=== PATIENT | female | born 1980 | race Caucasian/White ===

== ENCOUNTER 2025-02-06 16:58 | Inpatient (IN) | payer OTHER, SELFPAY ==
[2025-02-06 16:58] VITALS: BP 144/85; PULSE 67; RESP 18; TEMP 36.6; O2SAT 100; BMI 28.4
--- NOTE | 2025-02-06 17:31 | US_ITS ---
PROCEDURE: GALLBLADDER 02/06/2025 REASON FOR EXAM: PAIN COMPARISON: None FINDINGS: Liver: Mild hepatomegaly, craniocaudal length 17.6 cm. Homogeneous normal echogenicity. Gallbladder: Cholelithiasis. Mild wall thickening, measuring 4 mm. Negative sonographic Galindo's sign. Common bile duct: Dilated measuring up to 6 mm. Pancreas: Visualized portions are sonographically unremarkable. Other: Right kidney, measures 12 cm. No focal lesion. No calculi or hydronephrosis. US/Gallbladder IMPRESSION: Mild hepatomegaly, without focal lesion. Cholelithiasis with mild gallbladder wall thickening and common bile duct dilat ion. No visualized obstructing calculus. However, findings may be secondary to choledocholithiasis. Recommend further e valuation with MRCP. Reading Location: [facility]
--- NOTE | 2025-02-06 17:32 | ED.VIS.GI ---
HPI HPI - GI History of Present Illness Chief Complaint: Abd Pain Narrative Narrative: 45-year-old female past medical history of hypothyroidism presents with right upper quadrant pain that she has had since , approximately 4 days ago. She relates history that she was seen at [facility], where CT was obtained, and said that her gallbladder was angry. She denies any fevers or chills, no nausea or vomiting associated with this pain. They discharged her and she reportedly had a outpatient ultrasound today which showed that her gallbladder was once again angry. She was supposed to follow-up tomorrow with his surgeon, Dr. Guardado, who reportedly told her that he reviewed the films and her bile duct is dilated and there may be a stone within it and that he is reluctant to perform surgery, but she was to come to [place] to be admitted for gastroenterology/ERCP. Patient states that she had been discharged with pain medication, but she took it today and it was not helping. Pain is worse with movement and somewhat relieved by remaining still. [facility] Medical History (Updated 02/06/25 @ 20:[address] Cristobal Mcallister MD) Hypothyroidism Home Medications ?Medication ?Instructions ?Recorded ?Last Taken ?Type levothyroxine 75 mcg tablet 75 mcg PO DAILY 02/06/25 Unknown History Allergy/AdvReac Type Severity Reaction Status Date / Time No Known Allergies Allergy Verified 02/06/25 16:59 Social History Smoking Status: Never smoker ROS ROS ED ROS Narrative Review of systems is positive for right upper quadrant abdominal pain. No fevers or chills, no nausea or vomiting. Denies other symptoms. EXAM Physical Exam Narrative Exam Narrative: Afebrile. Vital signs noted. Nontoxic-appearing. Cardiovascular examination reveals a regular rate and rhythm. Lungs are clear to auscultation bilaterally. The abdomen is soft, with tenderness in the right upper quadrant with questionable Galindo sign. Positive bowel sounds. Const Vital Signs: 02/06/25 16:58 02/06/25 18:58 Temperature 97.8 F Temperature Source Oral Pulse Rate 67 62 Respiratory Rate 18 16 Blood Pressure 144/85 H 121/66 H Blood Pressure Mean 104 84 Pulse Ox 100 98 Oxygen Delivery Method Room Air Room Air MDM MDM MDM Narrative Medical decision making narrative: Differential diagnosis includes but not limited to gallstone pancreatitis versus acute cholecystitis versus choledocholithiasis versus nonspecific abdominal pain. With concern for acute cholecystitis, as images are unable to be viewed from the outside facility, repeat ultrasound will be obtained as well as basic laboratory work to look for elevated white count, and elevation of her LFTs. Patient administered morphine and ondansetron for analgesia. I reviewed her laboratory work and she has normal white count of 4.9 with hemoglobin 10.7, hematocrit 32.7, platelet count 294. CMP is remarkable for elevated AST of 78 with ALT of 64 and alk phos of 161. Lipase normal at 24. Serum negative. I reviewed the radiology report of the ultrasound of the right upper quadrant. Common bile duct is dilated. She does have cholelithiasis with thickened gallbladder wall. Suspicion is high for choledocholithiasis. I had initially discussed the patient with Dr. Stephens as she was sent in for ERCP/MRCP. However, I did discuss the patient with Dr. Mcallister with general surgery as well. She will be started on antibiotics and admitted to his service with consultation to gastroenterology. Disposition is admit in stable condition. History & Record Review Discussion w/independent historian: Patient Lab Data Attestation: I reviewed the patient's lab results. Labs: Laboratory Results - last 24 hr 02/06/25 17:53 WBC 4.9 RBC 3.61 L Hgb 10.7 L Hct 32.7 L MCV 90.6 MCH 29.6 MCHC 32.7 RDW Std Deviation 45.0 H RDW Coeff of Ana Paula 13.8 Plt Count 294 MPV 9.2 Immature Gran % (Auto) 0.200 Neut % (Auto) 77.4 H Lymph % (Auto) 13.6 L [place] % (Auto) 7.4 Eos % (Auto) 1.0 Baso % (Auto) 0.4 Absolute Neuts (auto) 3.8 Absolute Lymphs (auto) 0.66 L Nucleated RBC % 0 Sodium 140 Potassium 3.7 Chloride 106 Carbon Dioxide 23.0 Anion Gap 12 BUN 3 L Creatinine 0.61 L Estim Creat Clear Calc 124.13 Est GFR (MDRD) Non-Af 112 BUN/Creatinine Ratio 5.5 L Glucose 97 Calcium 9.8 Total Bilirubin 0.64 AST 78 H ALT 64 H Alkaline Phosphatase 161 H Total Protein 7.0 Albumin 3.9 Globulin 3.1 Albumin/Globulin Ratio 1.3 Lipase 24 Serum , Qual NEGATIVE Radiography Diagnostic Testing: Clinical Impression(s) from Imaging Studies Gallbladder Ultrasound 02/06/25 17:31 IMPRESSION: Mild hepatomegaly, without focal lesion. Cholelithiasis with mild gallbladder wall thickening and common bile duct dilation. No visualized obstructing calculus. However, findings may be secondary to choledocholithiasis. Recommend further evaluation with MRCP. Reading Location: [facility] Management Discussion w/another healthcare provider: [employer] (Gastroenterology, general surgery) Discharge Plan Dx/Rx/DC Orders Clinical Impression: Choledocholithiasis, Right upper quadrant abdominal pain, Common bile duct dilatation, Cholelithiasis Disposition Disposition: Acute Care [facility] Discharge Date/Time: 02/06/25 20:45
[2025-02-06] MEDS: Morphine 4 MG/ML Syringe IV (17:41)
[2025-02-06] MEDS: Ondansetron 4 MG/2 ML Vial IV (17:41)
[2025-02-06] MEDS: 0.9% Normal Saline (1000mL) 1,000 ML 999 ML IV (17:41)
[2025-02-06 18:07] LABS: Absolute Lymphocyte Count 0.66 X10^3/uL (0.83-4.51); Absolute Neutrophil Count 3.8 X10^3/uL (2.0-7.7); Basophil# 0.02 X10^3/uL; Basophil% 0.4 % (0-1); Eosinophil# 0.05 X10^3/uL; Hematocrit 32.7 % (37-47); Hemoglobin 10.7 g/dL (12.0-15.0); Lymphocyte # 0.66 X10^3/ul (0.83-4.51); Lymphocyte % 13.6 % (19-41); Mean Corp Hgb Conc 32.7 g/dL (32-36); Mean Corpuscular Hgb 29.6 pg (27.0-32.0); Mean Corpuscular Volume 90.6 fL (81-99); Mean Platelet Vol. 9.2 fl (6.2-12.0); Monocyte# 0.36 X10^3/uL; Monocyte% 7.4 % (0-10); NRBC Flagged by Analyzer 0 % (0-5); Neutrophil # 3.75 X10^3/uL (2.7-7.7); Neutrophil % 77.4 % (47-70); Platelet Count 294 K/mm3 (150-450); RBC Distribution Width CV 13.8 % (11.6-14.6); Red Blood Count 3.61 M/mm3 (4.2-5.4); White Blood Count 4.9 K/mm3 (4.4-11.0)
[2025-02-06 18:24] LABS: Internal QC Validated? YES +Cl - CLEAR BKGD; Pregnancy, Serum, hCG Quali. NEGATIVE Negative
[2025-02-06 18:30] LABS: Lipase 24 U/L (13-75)
--- NOTE | 2025-02-06 18:36 | CON.PCM.GI_ITS ---
HPI Consult Data Date of Consult: 02/06/25 HPI Narrative Reason for Consultation: Abdominal pain HPI Narrative: ANNALISE ARMENTA, is a 45-year-old female past medical history of hypothyroidism presents with right upper quadrant pain that she has had since , approximately 4 days ago. She relates history that she was seen at [facility], where CT was obtained, and said that her gallbladder was angry. She denies any fevers or chills, no nausea or vomiting associated with this pain. They discharged her and she reportedly had a outpatient ultrasound today which showed that her gallbladder was once again angry. She was supposed to follow-up tomorrow with his surgeon, Dr. Guardado, who reportedly told her that he reviewed the films and her bile duct is dilated and there may be a stone within it and that he is reluctant to perform surgery, but she was to come to [facility] to be admitted for gastroenterology/ERCP. Patient states that she had been discharged with pain medication, but she took it today and it was not helping. Pain is worse with movement and somewhat relieved by remaining still. She is afebrile at this time. Blood pressure is mildly hypertensive. Labs are pending. Imaging is pending. PFSH Allergy/AdvReac Type Severity Reaction Status Date / Time No Known Allergies Allergy Verified 02/06/25 16:59 ROS Constitutional Constitutional: Denies fatigue, fever(s), poor appetite, weight gain or weight loss Gastrointestinal Gastrointestinal: Denies belching, bloating, change in bowel habits, change in stool character, chewing difficulty, coffee ground emesis, constipation, cramping, diarrhea, dyspepsia, dysphagia, early satiety, excessive flatus, fecal incontinence, heartburn, hematemesis, hematochezia, hemorrhoids, loose stools, melena, nausea, odynophagia, rectal bleeding, tenesmus, vomiting or weight changes Physical Exam Const alert, oriented x3, no apparent distress and healthy appearing General Appearance: cooperative GI normal to inspection, nondistended, normoactive bowel sounds, soft to palpation, non-tender and non-distended Percussion: normal to percussion Rectal Exam: deferred Lab / Micro Data 02/06/25 17:53 02/06/25 17:53 Labs: Laboratory Results - last 24 hr 02/06/25 17:53: WBC 4.9, RBC 3.61 L, Hgb 10.7 L, Hct 32.7 L, MCV 90.6, MCH 29.6, MCHC 32.7, RDW Std Deviation 45.0 H, RDW Coeff of Ana Paula 13.8, Plt Count 294, MPV 9.2, Immature Gran % (Auto) 0.200, Neut % (Auto) 77.4 H, Lymph % (Auto) 13.6 L, [place] % (Auto) 7.4, Eos % (Auto) 1.0, Baso % (Auto) 0.4, Absolute Neuts (auto) 3.8, Absolute Lymphs (auto) 0.66 L, Nucleated RBC % 0, Lipase 24, Serum , Qual NEGATIVE Assessment & Plan Assessment/Plan (1) Choledocholithiasis: Charges/Coding Visit Charges Inpatient E&M: 89205 Init Hosp L3
[2025-02-06 18:49] LABS: ALB/GLOB Ratio 1.3 RATIO (0.9-2.4); AST(SGOT) 78 U/L (<=31); Alanine Aminotransfer ALT/SGPT 64 U/L (<=34); Albumin, Serum 3.9 g/dL (3.5-5.0); Alkaline Phosphatase 161 U/L (35-104); Anion Gap 12 (5-15); BUN 3 mg/dL (4-19); BUN/Creat Ratio 5.5 RATIO (10-20); Calcium,Total 9.8 mg/dL (7.6-11.0); Chloride 106 mmol/L (98-108); Creatinine, Serum 0.61 mg/dL (0.70-1.20); EST Glomerular Filtration Rate 112 (>60); Estimated Creatinine Clearance 124.13 ml/min (50-250); Globulin 3.1 g/dL (2.2-4.2); Glucose 97 mg/dL (70-99); Potassium 3.7 mmol/L (3.3-5.1); Sodium Level 140 mmol/L (133-145); Total Bilirubin 0.64 mg/dL (0.00-1.30)
[2025-02-06 18:58] VITALS: BP 121/66; PULSE 62; RESP 16; O2SAT 98
--- NOTE | 2025-02-06 19:51 | PCM.HP.STD ---
HPI - General HPI Narrative ANNALISE RAMENTA, is a 45 F who presents with abdominal pain since . She reports she saw an outside hospital and CT scan suggested possible cholecystitis and she had an ultrasound scheduled for today. When she had the ultrasound today she was sent here. She reports that she has been having pain for 5 days. She does not report any nausea or vomiting or fevers or chills. The pain is in the right upper quadrant. [facility] Medical History (Updated 02/06/25 @ 20:[address] Cristobal Mcallister MD) Hypothyroidism Home Medications ?Medication ?Instructions ?Recorded ?Last Taken ?Type levothyroxine 75 mcg tablet 75 mcg PO DAILY 02/06/25 Unknown History Allergy/AdvReac Type Severity Reaction Status Date / Time No Known Allergies Allergy Verified 02/06/25 16:59 Social History Smoking Status: Never smoker ROS Constitutional Constitutional: Denies anorexia, chills or fatigue Eyes Eyes: Denies blurry vision ENT HEENT: Denies abnormal hearing Cardiovascular Cardiovascular: Denies chest pain Respiratory/Chest Respiratory/Chest: Denies cough or dyspnea Gastrointestinal Gastrointestinal: Reports abdominal pain and nausea; Denies diarrhea, dysphagia or hematemesis Genitourinary Genitourinary: Denies change in urinary stream Musculoskeletal Musculoskeletal: Denies abnormal gait Integumentary Integumentary: Denies jaundice Neurologic Neurologic: Denies abnormal gait Psychiatric Psychiatric: Denies anxiety Endocrine Endocrinology: Denies flushing Vital Signs Vital Signs Vital Signs: 02/06/25 16:58 02/06/25 18:58 Temperature 97.8 F Temperature Source Oral Pulse Rate 67 62 Respiratory Rate 18 16 Blood Pressure 144/85 H 121/66 H Blood Pressure Mean 104 84 Pulse Ox 100 98 Oxygen Delivery Method Room Air Room Air Weight Weight: 176 lb Body Mass Index (BMI) 28.4 Physical Exam Const oriented x3 and no apparent distress Resp normal respiratory effort Cardio regular rate and regular rhythm GI soft to palpation Palpation: tender RUQ Extremity normal to inspection Results Lab / Micro Data 02/06/25 17:53 02/06/25 17:53 Labs: Laboratory Results - last 24 hr 02/06/25 17:53: WBC 4.9, RBC 3.61 L, Hgb 10.7 L, Hct 32.7 L, MCV 90.6, MCH 29.6, MCHC 32.7, RDW Std Deviation 45.0 H, RDW Coeff of Ana Paula 13.8, Plt Count 294, MPV 9.2, Immature Gran % (Auto) 0.200, Neut % (Auto) 77.4 H, Lymph % (Auto) 13.6 L, Glenn % (Auto) 7.4, Eos % (Auto) 1.0, Baso % (Auto) 0.4, Absolute Neuts (auto) 3.8, Absolute Lymphs (auto) 0.66 L, Nucleated RBC % 0, Sodium 140, Potassium 3.7, Chloride 106, Carbon Dioxide 23.0, Anion Gap 12, BUN 3 L, Creatinine 0.61 L, Estim Creat Clear Calc 124.13, Est GFR (MDRD) Non-Af 112, BUN/Creatinine Ratio 5.5 L, Glucose 97, Calcium 9.8, Total Bilirubin 0.64, AST 78 H, ALT 64 H, Alkaline Phosphatase 161 H, Total Protein 7.0, Albumin 3.9, Globulin 3.1, Albumin/Globulin Ratio 1.3, Lipase 24, Serum , Qual NEGATIVE Imaging Radiology Impression Gallbladder Ultrasound 02/06/25 17:31 IMPRESSION: Mild hepatomegaly, without focal lesion. Cholelithiasis with mild gallbladder wall thickening and common bile duct dilation. No visualized obstructing calculus. However, findings may be secondary to choledocholithiasis. Recommend further evaluation with MRCP. Reading Location: [facility] Assessment & Plan Assessment/Plan (1) Acute cholecystitis: PLAN: The patient does have acute cholecystitis with thickening of the gallbladder of 4 mm. Patient also had ultrasound that showed stones in the gallbladder. She had apparently had a CT scan at outside hospital that showed inflammation around the gallbladder. The patient has been sick for 5 days. I discussed performing laparoscopic cholecystectomy with cholangiograms. I discussed the procedure in detail with the patient. I discussed the risks, benefits, and alternatives of the procedure. I discussed the risks including but not limited to bleeding, infection, injury to surrounding organs such as the liver, bile duct, bowels. I did discuss the possibility of having to convert to an open procedure as well as the possibility that if any injuries occurred this may necessitate further surgery at a tertiary care center. I will consult Dr. Stephens as they discussed it with him in the emergency room and if there are any common duct stones he will perform ERCP. Cristobal Mcallister MD Pager: [facility] [address] [place] [address], [address] [place] [address] Office:
[2025-02-06] MEDS: Piperacil/Tazobactam 3.375 GM in 0.9% Normal Saline (50mL MB+) 50 ML IV (19:52)
[2025-02-06 20:41] VITALS: BP 120/66; PULSE 60; RESP 16; TEMP 36.7; O2SAT 98
[2025-02-06 21:00] VITALS: BMI 28.5
[2025-02-06 21:27] VITALS: BP 117/62; PULSE 92; RESP 16; TEMP 36.2; O2SAT 99
[2025-02-06] MEDS: 0.9% Saline Lock 10 ML Syringe IV (21:42)
[2025-02-06] MEDS: Morphine 2 MG/ML Syringe IV (21:42)
[2025-02-06] MEDS: 0.9% Normal Saline (1000mL) 1,000 ML 100 ML IV (21:44)
[2025-02-07] VITALS (16 sets, daily range): BP systolic 102–125; BP diastolic 48–91; PULSE 44–70; RESP 14–18; TEMP 36.3–37.4; O2SAT 94–100; BMI 28.5
--- NOTE | 2025-02-07 05:44 | EKG12_ITS ---
Test Reason : PRE OP Blood Pressure : */* mmHG Vent. Rate : 45 BPM Atrial Rate : 45 BPM P-R Int : 140 ms QRS Dur : 94 ms QT Int : 450 ms P-R-T Axes : 43 7 2 degrees QTcB Int : 389 ms Sinus bradycardia Low voltage QRS Borderline ECG No previous ECGs available Confirmed by CARLA BERNAL, CHARLENE ([id number]), scientific editor CRISTIAN PACHECO ([id number]) on 02/08/2025 7:18:33 AM Referred By: NORBERTO Confirmed By: CHARLENE AGUIRRE MD
[2025-02-07] MEDS: 0.9% Normal Saline (1000mL) 1,000 ML 100 ML IV ×3 (06:31→21:35)
[2025-02-07] MEDS: Piperacil/Tazobactam 3.375 GM in 0.9% Normal Saline (50mL MB+) 50 ML IV ×3 (06:32→21:34)
[2025-02-07] MEDS: 0.9% Normal Saline (100mL Bag) 100 ML 15 ML IV (06:32)
[2025-02-07 06:49] LABS: Absolute Lymphocyte Count 0.42 X10^3/uL (0.83-4.51); Absolute Neutrophil Count 2.5 X10^3/uL (2.0-7.7); Basophil# 0.01 X10^3/uL; Basophil% 0.3 % (0-1); Eosinophil# 0.07 X10^3/uL; Eosinophils% 2.1 % (0-5); Hematocrit 28.8 % (37-47); Hemoglobin 9.4 g/dL (12.0-15.0); Lymphocyte # 0.42 X10^3/ul (0.83-4.51); Lymphocyte % 12.6 % (19-41); Mean Corp Hgb Conc 32.6 g/dL (32-36); Mean Corpuscular Hgb 29.6 pg (27.0-32.0); Mean Corpuscular Volume 90.6 fL (81-99); Mean Platelet Vol. 9.2 fl (6.2-12.0); NRBC Flagged by Analyzer 0 % (0-5); Neutrophil # 2.51 X10^3/uL (2.7-7.7); Neutrophil % 75.4 % (47-70); POSITIVE DIFFERENTIAL YES; Platelet Count 241 K/mm3 (150-450); RBC Distribution Width CV 14.2 % (11.6-14.6); RBC Distribution Width SD 46.2 fl (35.1-43.9); Red Blood Count 3.18 M/mm3 (4.2-5.4); White Blood Count 3.3 K/mm3 (4.4-11.0)
[2025-02-07] MEDS: Morphine 2 MG/ML Syringe IV ×2 (06:50→19:56)
--- NOTE | 2025-02-07 06:57 | PN.SURG_ITS ---
Subjective Subjective Patient uncomfortable overnight in the right upper quadrant Objective Data Objective Data Vital Signs: Vital Signs Temp Pulse Resp BP Pulse Ox O2 Del Method 98.1 F 60 16 106/64 99 Room Air 02/07/25 04:20 02/07/25 06:48 02/07/25 04:20 02/07/25 06:48 02/07/25 04:20 02/07/25 04:20 Oxygen Delivery Method Room Air Weight: 176 lb 9.444 oz Body Mass Index (BMI) 28.5 Intake & Output: Intake and Output for Last 24 Hours 02/05/25 02/06/25 02/07/25 23:59 23:59 23:59 Intake Total 1050 / 1050 1178.33 / 1178.33 Balance 1050 / 1050 1178.33 / 1178.33 Lab / Micro Data 02/07/25 06:17 02/06/25 17:53 Labs: Laboratory Results - last 24 hr 02/06/25 17:53: WBC 4.9, RBC 3.61 L, Hgb 10.7 L, Hct 32.7 L, MCV 90.6, MCH 29.6, MCHC 32.7, RDW Std Deviation 45.0 H, RDW Coeff of Ana Paula 13.8, Plt Count 294, MPV 9.2, Immature Gran % (Auto) 0.200, Neut % (Auto) 77.4 H, Lymph % (Auto) 13.6 L, [place] % (Auto) 7.4, Eos % (Auto) 1.0, Baso % (Auto) 0.4, Absolute Neuts (auto) 3.8, Absolute Lymphs (auto) 0.66 L, Nucleated RBC % 0, Sodium 140, Potassium 3.7, Chloride 106, Carbon Dioxide 23.0, Anion Gap 12, BUN 3 L, Creatinine 0.61 L , Estim Creat Clear Calc 124.13, Est GFR (MDRD) Non-Af 112, BUN/Creatinine Ratio 5.5 L, Glucose 97, Calcium 9.8, Total Bilirubin 0.64, AST 78 H, ALT 64 H, A lkaline Phosphatase 161 H, Total Protein 7.0, Albumin 3.9, Globulin 3.1, Albumin/Globulin Ratio 1.3, Lipase 24, Serum , Qual NEGATIVE 02/07/25 06:17: WBC 3.3 L, RBC 3.18 L, Hgb 9.4 L, Hct 28.8 L, MCV 90.6, MCH 29.6, MCHC 32.6, RDW Std Deviation 46.2 H, RDW Coeff of Ana Paula 14.2, Plt Count 241, MPV 9.2, Immature Gran % (Auto) 0.600, Neut % (Auto) 75.4 H, Lymph % (Auto) 12.6 L, Lamb % (Auto) 9.0, Eos % (Auto) 2.1, Baso % (Auto) 0.3, Absolute Neuts (auto) 2.5, Absolute Lymphs (auto) 0.42 L, Nucleated RBC % 0 Radiography Diagnostic Testing: Radiology Impression Gallbladder Ultrasound 02/06/25 17:31 IMPRESSION: Mild hepatomegaly, without focal lesion. Cholelithiasis with mild gallbladder wall thickening and common bile duct dilation. No visualized obstructing calculus. However, findings may be secondary to choledocholithiasis. Recommend further evaluation with MRCP. Reading Location: [facility] Physical Exam Const oriented x3 and no apparent distress Resp normal respiratory effort GI soft to palpation Palpation: tender RUQ Assessment & Plan Assessment/Plan (1) Acute cholecystitis: PLAN: The patient came in with abdominal pain and had an ultrasound that showed thickening of the gallbladder as well as cholelithiasis. She also had elevated liver enzymes. The plan will be to take her for laparoscopic cholecystectomy with cholangiograms today. All of her questions were answered. If necessary Dr. Stephens may be needed to do an ERCP. Cristobal Mcallister MD Pager: [facility] [address] [place] [address], [address] [place] [address] Office:
[2025-02-07 07:28] LABS: ALB/GLOB Ratio 1.2 RATIO (0.9-2.4); AST(SGOT) 643 U/L (<=31); Alanine Aminotransfer ALT/SGPT 336 U/L (<=34); Albumin, Serum 3.1 g/dL (3.5-5.0); Alkaline Phosphatase 349 U/L (35-104); Anion Gap 10 (5-15); BUN 5 mg/dL (4-19); BUN/Creat Ratio 7.8 RATIO (10-20); Calcium,Total 8.7 mg/dL (7.6-11.0); Carbon Dioxide 21.9 mmol/L (21.0-32.0); Chloride 107 mmol/L (98-108); Creatinine, Serum 0.65 mg/dL (0.70-1.20); EST Glomerular Filtration Rate 111 (>60); Estimated Creatinine Clearance 116.67 ml/min (50-250); Globulin 2.6 g/dL (2.2-4.2); Glucose 91 mg/dL (70-99); Potassium 3.7 mmol/L (3.3-5.1); Protein, Total 5.7 g/dL (5.9-8.4); Sodium Level 139 mmol/L (133-145); Total Bilirubin 1.61 mg/dL (0.00-1.30)
--- NOTE | 2025-02-07 08:40 | PCM.PRE.AN2 ---
ASA Classification* ASA Classification ASA Classification: 2 Assessment & Plan Anesthesia* Anesthesia Assessment Anesthesia Assessment: Discussed sedation and/or anesthesia options, risks, benefits, and alternatives with patient/parents/legal guardian/POA. Questions invited. The patient/parents/legal guardian/POA seems to understand and agrees to proceed with anesthesia plan. Reviewed the physical assessment, medical history, allergy history and patient home medications list prior to surgery/procedure/anesthetic and documented any changes. Performed airway and anesthesia risk assessments. Anesthesia Type Anesthesia Type: General History Source History Obtained from:: Patient and Chart Anesthesia Focused Assessment* Temperature: 97.9 F Pulse Rate: 55 Blood Pressure: 115/72 Respiratory Rate: 14 Pulse Ox: 99 Oxygen Delivery Method: Room Air Airway Assessment Mouth opens: >3 cm Mallampati Score: III Teeth Condition: Intact Neck Range of motion (ROM): Full ROM Focused Labs Anesthesia Preop lab: CBC WBC 3.3 K/mm3 (4.4-11.0) L 02/07/25 06:17 02/07/25 RBC 3.18 M/mm3 (4.2-5.4) L 02/07/25 06:17 02/07/25 Hgb 9.4 g/dL (12.0-15.0) L 02/07/25 06:17 02/07/25 Hct 28.8 % (37-47) L 02/07/25 06:17 02/07/25 Plt Count 241 K/mm3 (150-450) 02/07/25 06:17 02/07/25 CHEMISTRY Potassium 3.7 mmol/L (3.3-5.1) 02/07/25 06:17 02/07/25 Sodium 139 mmol/L (133-145) 02/07/25 06:17 02/07/25 BUN 5 mg/dL (4-19) 02/07/25 06:17 02/07/25 Creatinine 0.65 mg/dL (0.70-1.20) L 02/07/25 06:17 02/07/25 Glucose 91 mg/dL (70-99) 02/07/25 06:17 02/07/25 TSH Pending 02/07/25 06:17 02/07/25 COAG Pre-Assessment Diagnosis/Proposed Procedure Planned Operative Procedure(s): Laparoscopic cholecystectomy. Anesthesia History Anesthesia History - office supervisor: Anesthesia History - office supervisor Hx Hospitalization Any Problems With Anesthesia No 02/06/25 21:01 Cholinesterase deficiency No 02/06/25 21:01 You/Your Family Experience No 02/06/25 21:01 fever (hyperthermia) with Relationship Recent Exposure to Contagious No 02/06/25 21:01 Disease Does patient have nerve No 02/06/25 21:01 stimulator Patient instructed to have device shut off --Does patient have Pacemaker No 02/07/25 07:51 or ICD? When Was Last Pacemaker Check QUESTION #4 FULL TEXT: You/Your Family Experience fever (hyperthermia) with Anesthesia Last Oral Intake Last Oral intake: Last Oral Intake NPO since 00:01 02/07/25 07:51 Meds taken in AM with sips of No 02/07/25 07:51 water? Meds patient instructed to take am of surgery PONV PONV - office supervisor: PONV - office supervisor Female HX of Motion Sickness HX of N/V After Surgery Non-Smoker Duration of Surgery greater than 60 minutes Number of Risk Factors PONV Score Height & Weight Height & Weight: Anesthesia: Height & Weight Height 5 ft 6 in 02/07/25 07:51 Weight: 80.1 kg 02/07/25 07:51 Body Mass Index (BMI) 28.5 02/07/25 07:51 Respiratory Assessment Respiratory Assessment - office supervisor: Respiratory Tract Infection Hx - office supervisor Hx Respiratory Tract Infection No 02/06/25 21:01 STOP Sleep Apnea STOP Sleep Apnea - office supervisor: STOP Sleep Apnea - office supervisor Hx Hypertension No 02/06/25 21:00 Hx Sleep Apnea No 02/06/25 21:00 CPAP BIPAP Do you snore loudly (louder No 02/06/25 21:00 than talking or can be heard Do you often feel tired/ No 02/06/25 21:00 fatigued/ sleepy during daytime? Has anyone observed you stop No 02/06/25 21:00 breathing during sleep? STOP Results Negative 02/06/25 21:00 QUESTION #5 FULL TEXT : Do you snore loudly (louder than talking or can be heard through closed doors)? Tobacco Use History Tobacco Use History - office supervisor: Tobacco Use History - office supervisor Tobacco Use Smoking Status Never smoker 02/06/25 21:00 Hx Tobacco Use No 02/06/25 21:00 Years Smoking Packs Smoked per Day Smoking Cessation Date was within the last 15 years Hx Smoking Cessation Date Hx Smoking Cessation Counseling Hematologic Medial History Hematologic Hx - office supervisor: Hematologic Medical Hx - inside sales agent Hx of Blood Transfusion No 02/06/25 21:00 Hx of Transfusion in last 3 No 02/06/25 21:00 Months Date of Last Transfusion (if within last 3 months) Ever experience any problems No 02/06/25 21:00 with transfusion(s)? Specify any problems Hx of Preganancy in last 3 No 02/06/25 21:00 Months Nurse Filling Out Transfusion EVIZZO 02/06/25 21:00 & Questions: Date: 02/06/25 02/06/25 21:00 Time: 21:17 02/06/25 21:00 Patient unable to answer at this time (ie. confused, unrespo /Reproduction History /Reproductive History - office supervisor: /Reproductive Hx- office supervisor Hx Now No 02/06/25 21:01 Gestational Age (in weeks): EDC: Hx Hx Para Hx Section SAB No 02/06/25 21:01 Active Medications Active Medications: Current Medications Generic Name Dose Route Start Last Admin Trade Name Freq PRN Reason Stop Dose Admin Acetaminophen 650 mg 02/06/25 20:18 Acetaminophen 325 Mg Tablet PO Q4H PRN PRN Pain 1-10 or Fever Sodium Chloride 1,000 mls @ 100 mls/hr 02/06/25 20:20 02/07/25 06:31 IV 100 mls/hr .Q10H NEELIMA Administration Piperacillin Sod/Tazobactam 50 mls @ 12.5 mls/hr 02/07/25 06:00 02/07/25 06:32 Sod 3.375 gm/ Sodium Chloride IV 12.5 mls/hr Q8 NEELIMA Administration Sodium Chloride 100 mls @ 15 mls/hr 02/07/25 05:55 02/07/25 06:32 IV 15 mls/hr .Q6H40M PRN Administration Saline Flush Sodium Chloride 100 mls @ 15 mls/hr 02/07/25 05:55 IV .Q6H40M PRN Additional IVPB Infusion Morphine Sulfate 2 - 4 mg 02/06/25 20:18 02/07/25 06:50 Morphine 2 Mg/Ml Syringe IV 2 mg Q2H PRN PRN Administration Pain Score 4-10 Ondansetron HCl 4 mg 02/06/25 20:18 Ondansetron 4 Mg/2 Ml Vial IV Q6H PRN PRN NAUSEA/VOMITING Sodium Chloride 10 - 40 ml 02/06/25 20:18 02/06/25 21:42 0.9% Saline Lock 10 Ml Syringe IV 10 ml UD PRN Administration SALINE FLUSH Sodium Chloride 10 - 40 ml 02/06/25 20:18 0.9% Saline Lock 10 Ml Syringe IV UD PRN SALINE FLUSH Sodium Chloride 10 - 40 ml 02/06/25 21:10 0.9% Saline Lock 10 Ml Syringe IV UD PRN SALINE FLUSH PFSH Medical History Hypothyroidism Home Medications ?Medication ?Instructions ?Recorded ?Last Taken ?Type levothyroxine 75 mcg tablet 75 mcg PO DAILY 02/06/25 Unknown History Allergy/AdvReac Type Severity Reaction Status Date / Time No Known Allergies Allergy Verified 02/06/25 16:59 Social History Smoking Status: Never smoker Review of Systems (Anesthesia) ROS Narrative System reviewed and no additional complaints, except as documented.
[2025-02-07] MEDS: Bupiv/Epi 0.25% 30 ML Vial (10:51)
--- NOTE | 2025-02-07 11:08 | PCM.OPRPT ---
Operative Report (Standard) Operative Information Date of Procedure: 02/07/25 Pre-Operative Diagnosis: Acute cholecystitis Post-Operative Diagnosis: Acute cholecystitis Surgery/Procedure Performed: Exploratory laparoscopy commercial attorney: Yes [employer] Attendant: Estephanie España Tasks completed by assistant center director: Opening & closing Type of Anesthesia: General/Regional RN Documented Start/Stop Times: Operation Date: 02/07/25 14:30 <No data on this case meets the specified criteria> Procedure Start Time: 10:40 Procedure Stop Time: 11:15 Select all DRAINS/GRAFTS/IMPLANTS that apply: None Estimated Blood Loss: 10 Specimen collected: No Description of surgery: The patient was brought back to the operating room and general anesthesia was induced. The abdomen was prepped and draped in usual sterile fashion. A midline incision was made. The midline incision was deepened to the fascia which was elevated and incised. The abdomen was entered and a port was placed. The abdomen was insufflated to 15 mmHg. Upon inspection the patient's right upper quadrant was incredibly inflamed I placed a 5 mm port in the subxiphoid space and an 5 mm port in the right upper quadrant under direct visualization. I attempted to move the fat to identify the gallbladder but it was so tightly adherent to the gallbladder into the liver that I was unable to identify the gallbladder throughout the surgery. Even with dissection I was unable to see the gallbladder. At this point I did elected to abort the surgery. I discussed with hepatobiliary surgeon at [facility] who agreed to accept the patient. I will transfer her there to have completion surgery. I discussed this with the patient's family as well. Surgical Findings: Very inflamed gallbladder that I was unable to identify Complications Complications: No Admit VTE Documentation VTE Mechan Device Prophylaxis: SCD's
--- NOTE | 2025-02-07 11:15 | PCM.POST.ANE ---
Anesthesia: Postop Eval I Current Vital Signs Temperature: 97.4 F Pulse Rate: 62 Blood Pressure: 107/63 Respiratory Rate: 14 Pulse Ox: 98 Oxygen Delivery Method: Room Air Assessment Airway patent: Yes Spontaneous unlabored respirations: Yes Mental status: Awake nausea: Yes Vomiting: No Anesthesia Complication: No Fluid Hydration Crystalloid volume administer (ml): 1,000 Total IV fluid infused: 1,000 Progress Note Anesthesia document: Postop Eval 1 completed: Yes
--- NOTE | 2025-02-07 11:58 | CASEMGMT ---
Noted pt OR was aborted and plan for pt to trf to [facility]. [facility]. Noted card stated this is not insurance. Pt may be trf'd to any facility of choice.
--- NOTE | 2025-02-07 13:08 | CT_ITS ---
EXAM: CT Abdomen, Pelvis and Lumbar Spine With Intravenous Contrast CLINICAL INDICATION: ACUTE CHOLECYSTITIS, FORWARD IMAGES TO [facility] TECHNIQUE: Axial computed tomography images of the abdomen, pelvis and lumbar spine with intravenous contrast. This CT exam was performed using one or more of the following dose reduction techniques: automated exposure control, adjustment of the mA and/or kV according to patient size, and/or use of iterative reconstruction technique. COMPARISON: No relevant prior studies available. FINDINGS: LUNG BASES: Bibasilar atelectasis scarring. ABDOMEN: LIVER: Unremarkable. No mass. GALLBLADDER AND BILE DUCTS: Distended gallbladder with surrounding fat stranding and edema concerning for acute cholecystitis. No ductal dilation. PANCREAS: Unremarkable. No mass. No ductal dilation. SPLEEN: Unremarkable. No splenomegaly. ADRENALS: Unremarkable. No mass. KIDNEYS AND URETERS: Unremarkable. No solid mass. No hydronephrosis. STOMACH AND BOWEL: Unremarkable. No obstruction. No mucosal thickening. PELVIS: APPENDIX: No findings to suggest acute appendicitis. BLADDER: Unremarkable. No mass. REPRODUCTIVE: Probable uterine fibroid. LUMBAR SPINE: VERTEBRAE: Unremarkable. No acute fracture. DISCS/SPINAL CANAL/NEURAL FORAMINA: No acute findings. No significant spinal canal stenosis. ABDOMEN and PELVIS: INTRAPERITONEAL SPACE: Unremarkable. No free air. No significant fluid collection. BONES/JOINTS: No acute fracture. No dislocation. SOFT TISSUES: Unremarkable. VASCULATURE: Unremarkable. No abdominal aortic aneurysm. LYMPH NODES: Unremarkable. No enlarged lymph nodes. CT/Abdomen/Pelvis W IV Cont ONLY IMPRESSION: Distended gallbladder with surrounding fat stranding and edema concerning for a cute cholecystitis. Reading Location: [facility]
[2025-02-07] MEDS: 0.9% Saline Lock 10 ML Syringe IV (13:43)
--- NOTE | 2025-02-07 18:11 | PCM.PN.BLA ---
Progress Note Patient underwent attempted cholecystectomy today. However there was some much inflammation, that the gallbladder cannot be identified. The procedure was halted and patient is to be transferred to high-level care. Physical Exam Const oriented x3 and no apparent distress Resp normal respiratory effort GI soft to palpation Palpation: tender RUQ Assessment & Plan Assessment/Plan (1) Acute cholecystitis: (2) Cholelithiasis: (3) Common bile duct dilatation: PLAN: Patient being transferred to high-level care. She is on a antibiotics and pain is under control at this time. She remains afebrile. Visit Charges Inpatient E&M: 82185 Subs Hosp L2
--- NOTE | 2025-02-07 19:20 | POSTOPAN2_ITS ---
Anesthesia Postop Eval I Sum Postop Eval Completion status Anesthesia document: Postop Eval 1 completed: Yes Anesthesia Postop Eval I Summary Anesthesia Postop Eval I Summary: Anesthesia Postop Eval I: Assessment Summary Airway patent Yes 02/07/25 11:16 ASSOCIATE PROFESSOR OF THEOLOGY.[email or web address] Spontaneous unlabored Yes 02/07/25 11:16 ASSOCIATE PROFESSOR OF THEOLOGY.HBARR respirations Mental status Awake 02/07/25 11:16 ASSOCIATE PROFESSOR OF THEOLOGY.HBARR nausea Yes 02/07/25 11:16 ASSOCIATE PROFESSOR OF THEOLOGY.HBARR Vomiting No 02/07/25 11:16 ASSOCIATE PROFESSOR OF THEOLOGY.HBARR Anesthesia Postop Eval I: Fluid Summary Crystalloid volume administer 1,000 02/07/25 11:16 ASSOCIATE PROFESSOR OF THEOLOGY.HBARR (ml) Colloids volume administered ( ml) Blood Product volume administered (ml) Total IV fluid infused 1,000 02/07/25 11:16 ASSOCIATE PROFESSOR OF THEOLOGY.HBARR Anesthesia Postop Eval I: Summary Notes Anesthesia Complication No 02/07/25 11:16 ASSOCIATE PROFESSOR OF THEOLOGY.HBARR Anesthesia Complication Comment: Post-operative progress note Anesthesia: Postop Eval II Evaluation Mental status: Awake and Calm Pain Level: 1 nausea: No Vomiting: No Complications Anesthesia Complication: No
--- NOTE | 2025-02-07 19:20 | PCM.POSTANE2 ---
Anesthesia Postop Eval I Sum Postop Eval Completion status Anesthesia document: Postop Eval 1 completed: Yes Anesthesia Postop Eval I Summary Anesthesia Postop Eval I Summary: Anesthesia Postop Eval I: Assessment Summary Airway patent Yes 02/07/25 11:16 VACUUM DRIER [email or web address] Spontaneous unlabored Yes 02/07/25 11:16 VACUUM DRIER TENDER.HBARR respirations Mental status Awake 02/07/25 11:16 VACUUM DRIER TENDER.HBARR nausea Yes 02/07/25 11:16 VACUUM DRIER TENDER.HBARR Vomiting No 02/07/25 11:16 VACUUM DRIER TENDER.HBARR Anesthesia Postop Eval I: Fluid Summary Crystalloid volume administer 1,000 02/07/25 11:16 VACUUM DRIER TENDER.HBARR (ml) Colloids volume administered ( ml) Blood Product volume administered (ml) Total IV fluid infused 1,000 02/07/25 11:16 VACUUM DRIER TENDER.HBARR Anesthesia Postop Eval I: Summary Notes Anesthesia Complication No 02/07/25 11:16 VACUUM DRIER TENDER.HBARR Anesthesia Complication Comment: Post-operative progress note Anesthesia: Postop Eval II Evaluation Mental status: Awake and Calm Pain Level: 1 nausea: No Vomiting: No Complications Anesthesia Complication: No
[2025-02-08 00:26] VITALS: BP 109/45; PULSE 64; RESP 18; TEMP 36.6; O2SAT 96
[2025-02-08 05:10] VITALS: BP 92/47; PULSE 66; RESP 16; TEMP 36.6; O2SAT 100
[2025-02-08] MEDS: Piperacil/Tazobactam 3.375 GM in 0.9% Normal Saline (50mL MB+) 50 ML IV ×3 (05:16→21:55)
[2025-02-08 05:20] LABS: Absolute Lymphocyte Count 0.48 X10^3/uL (0.83-4.51); Basophil# 0.01 X10^3/uL; Basophil% 0.2 % (0-1); Hematocrit 28.1 % (37-47); Lymphocyte # 0.48 X10^3/ul (0.83-4.51); Lymphocyte % 10.1 % (19-41); Mean Corpuscular Hgb 29.1 pg (27.0-32.0); Mean Corpuscular Volume 90.9 fL (81-99); Mean Platelet Vol. 9.6 fl (6.2-12.0); Monocyte% 4.2 % (0-10); NRBC Flagged by Analyzer 0 % (0-5); Neutrophil # 4.04 X10^3/uL (2.7-7.7); Neutrophil % 85.1 % (47-70); POSITIVE DIFFERENTIAL YES; Platelet Count 258 K/mm3 (150-450); RBC Distribution Width CV 14.3 % (11.6-14.6); RBC Distribution Width SD 47.4 fl (35.1-43.9); Red Blood Count 3.09 M/mm3 (4.2-5.4); White Blood Count 4.8 K/mm3 (4.4-11.0)
[2025-02-08 05:40] LABS: ALB/GLOB Ratio 1.2 RATIO (0.9-2.4); AST(SGOT) 232 U/L (<=31); Alanine Aminotransfer ALT/SGPT 269 U/L (<=34); Albumin, Serum 3.2 g/dL (3.5-5.0); Alkaline Phosphatase 390 U/L (35-104); Anion Gap 13 (5-15); BUN 8 mg/dL (4-19); BUN/Creat Ratio 11.7 RATIO (10-20); Calcium,Total 9.2 mg/dL (7.6-11.0); Carbon Dioxide 18.4 mmol/L (21.0-32.0); Chloride 108 mmol/L (98-108); Creatinine, Serum 0.71 mg/dL (0.70-1.20); EST Glomerular Filtration Rate 106 (>60); Estimated Creatinine Clearance 106.81 ml/min (50-250); Globulin 2.6 g/dL (2.2-4.2); Glucose 91 mg/dL (70-99); Protein, Total 5.8 g/dL (5.9-8.4); Sodium Level 140 mmol/L (133-145); Total Bilirubin 0.76 mg/dL (0.00-1.30)
[2025-02-08] MEDS: 0.9% Normal Saline (1000mL) 1,000 ML 100 ML IV ×2 (07:15→21:55)
--- NOTE | 2025-02-08 07:56 | PN.SURG_ITS ---
Subjective Subjective Patient is more comfortable than yesterday Objective Data Objective Data Vital Signs: Vital Signs Temp Pulse Resp BP Pulse Ox O2 Del Method 98 F 66 16 92/47 L 100 Room Air 02/08/25 05:10 02/08/25 05:10 02/08/25 05:10 02/08/25 05:10 02/08/25 05:10 02/08/25 05:10 Oxygen Delivery Method Room Air Weight: 176 lb 9.444 oz Body Mass Index (BMI) 28.5 Intake & Output: Intake and Output for Last 24 Hours 02/06/25 02/07/25 02/08/25 23:59 23:59 23:59 Intake Total 1050 / 1050 3378.33 / 3378.33 1046.67 / 1046.67 Balance 1050 / 1050 3378.33 / 3378.33 1046.67 / 1046.67 Lab / Micro Data 02/08/25 04:22 02/08/25 04:22 Labs: Laboratory Results - last 24 hr 02/07/25 06:17: TSH 4.320 H 02/08/25 04:22: WBC 4.8, RBC 3.09 L, Hgb 9.0 L, Hct 28.1 L, MCV 90.9, MCH 29.1, MCHC 32.0, RDW Std Deviation 47.4 H, RDW Coeff of [place] 14.3, Plt Count 258, MPV 9.6, Immature Gran % (Auto) 0.400, Neut % (Auto) 85.1 H, Lymph % (Auto) 10.1 L, [place] % (Auto) 4.2, Eos % (Auto) 0.0, Baso % (Auto) 0.2, Absolute Neuts (auto) 4.0, Absolute Lymphs (auto) 0.48 L, Nucleated RBC % 0, Sodium 140, Potassium 4.0, Chloride 108, Carbon Dioxide 18.4 L, Anion Gap 13, BUN 8, Creatinine 0.71, Estim Creat Clear Calc 106.81, Est GFR (MDRD) Non-Af 106, BUN/Creatinine Ratio 11.7, Glucose 91, Calcium 9.2, Total Bilirubin 0.76, AST 232 H, ALT 269 H, A lkaline Phosphatase 390 H, Total Protein 5.8 L, Albumin 3.2 L, Globulin 2.6, Albumin/Globulin Ratio 1.2 Radiography Diagnostic Testing: Radiology Impression Abdomen/Pelvis CT 02/07/25 13:08 IMPRESSION: Distended gallbladder with surrounding fat stranding and edema concerning for acute cholecystitis. Reading Location: [facility] Physical Exam Const oriented x3 and no apparent distress Resp normal respiratory effort GI soft to palpation Palpation: tender RUQ Assessment & Plan Assessment/Plan (1) Acute cholecystitis: PLAN: Patient has severe acute cholecystitis. Laparoscopic cholecystectomy was attempted yesterday but I was unable to even identify the gallbladder. I discussed the case with [facility] surgeon in [facility] and the patient was accepted for transfer awaiting bed. Continue antibiotics. I will give her some clear liquids today in case she is not transferred. Cristobal Mcallister MD Pager: [facility] [address] [place] [address], [address] [place] [address] Office:
[2025-02-08 08:08] VITALS: BP 102/59; PULSE 66; RESP 14; TEMP 36.8
[2025-02-08 08:09] VITALS: PULSE 66; RESP 14; O2SAT 98
--- NOTE | 2025-02-08 12:42 | NURSING ---
Dr. Mcallister updated called [facility] transfer center for [facility] for bed status, told no bed, no time frame available, but would escalate it to the cdl flatbed truck driver again.
[2025-02-08 14:41] VITALS: BP 101/50; PULSE 58; RESP 14; TEMP 36.7; O2SAT 100
--- NOTE | 2025-02-08 16:12 | CHAPLAIN ---
Type of Pastoral Visit _x__ Initial Visit ___ Follow-up Visit ___ On-call Visit ___ General Patient Visit ___ Spiritual Assessment ___ Family Conference ___ Bereavement ___ Rapid Response ___ Code Blue ___ Other (describe below) Pastoral Care Referral From ___ Patient _x__ Family ___ Nurse ___ Physician ___ Die Hardener ___ Coke Crusher Operator ___ Other (describe below) Sacrament/Intervention _x__ Active listening ___ Anointing ___ Islam ___ Bereavement ___ Communion _x__ Delia exploration ___ _x__ Life review _x__ Prayer ___ Reconciliation ___ Sacrament of Sick ___ Supportive presence ___ Wedding ___ Other (describe below) Pastoral Comments this patient had unsuccessful surgery and is to be transferred to another hospital when a bed is available; pt admits some frustration and disappointment at the situation but speaks of her delia and that she knows this is out of her control, will accept the situation, and keep trusting in God for the timing and answers; pt says that she does not need anything else but is most encouraged by prayers; prayer given
--- NOTE | 2025-02-08 16:29 | NURSING ---
All documentation by nursing program chair Nancy Kaufman reviewed by skilled nursing facilities professional Danielle MUHAMMADN, RN.
--- NOTE | 2025-02-08 17:30 | NURSING ---
talked with [facility] transfer center awaRe no bed assignment at this time, states discharge dependent and still awaiting bed.
[2025-02-08 20:17] VITALS: BP 112/65; PULSE 61; RESP 15; TEMP 36.6; O2SAT 97
[2025-02-09 02:20] VITALS: BP 98/52; PULSE 56; RESP 16; TEMP 36.6; O2SAT 99
[2025-02-09] MEDS: 0.9% Saline Lock 10 ML Syringe IV (02:25)
[2025-02-09] MEDS: Piperacil/Tazobactam 3.375 GM in 0.9% Normal Saline (50mL MB+) 50 ML IV ×3 (04:59→21:45)
[2025-02-09] MEDS: 0.9% Normal Saline (1000mL) 1,000 ML 100 ML IV ×2 (08:46→21:46)
--- NOTE | 2025-02-09 08:57 | PCM.PN.SRG ---
Subjective Subjective Patient is tolerating clear liquids and rates her pain at a 2 out of 10 Objective Data Objective Data Vital Signs: Vital Signs Temp Pulse Resp BP Pulse Ox O2 Del Method 97.8 F 56 L 16 98/52 L 99 Room Air 02/09/25 02:20 02/09/25 02:20 02/09/25 02:20 02/09/25 02:20 02/09/25 02:20 02/09/25 02:20 Oxygen Delivery Method Room Air Weight: 176 lb 9.444 oz Body Mass Index (BMI) 28.5 Intake & Output: Intake and Output for Last 24 Hours 02/07/25 02/08/25 02/09/25 23:59 23:59 23:59 Intake Total 3378.33 / 3378.33 3419.67 / 3419.67 1300 / 1300 Balance 3378.33 / 3378.33 3419.67 / 3419.67 1300 / 1300 Lab / Micro Data 02/08/25 04:22 02/08/25 04:22 Physical Exam Const oriented x3 and no apparent distress Resp normal respiratory effort GI soft to palpation Palpation: tender RUQ Assessment & Plan Assessment/Plan (1) Acute cholecystitis: PLAN: The patient had acute cholecystitis too severe for laparoscopic cholecystectomy. I was unable to identify the gallbladder. I arranged transfer to [facility] and we are still awaiting a bed. Continue clear liquids and IV antibiotics and pain control Cristobal Mcallister MD Pager: [facility] [address] [place] [address], [address] [place] [address] Office:
[2025-02-09 09:45] VITALS: BP 118/71; PULSE 82; RESP 16; TEMP 36.6; O2SAT 100
[2025-02-09 13:46] VITALS: BP 124/70; PULSE 51; RESP 16; TEMP 36.3; O2SAT 99
[2025-02-09 22:05] VITALS: BP 136/77; PULSE 57; RESP 16; TEMP 36.5; O2SAT 98
[2025-02-10] MEDS: Piperacil/Tazobactam 3.375 GM in 0.9% Normal Saline (50mL MB+) 50 ML IV ×3 (06:03→22:45)
[2025-02-10 06:07] VITALS: BP 115/61; PULSE 98; RESP 16; TEMP 36.6; O2SAT 51
[2025-02-10] MEDS: Levothyroxine 75 MCG Tablet PO (07:26)
--- NOTE | 2025-02-10 07:31 | PN.SURG_ITS ---
Subjective Subjective Patient is comfortable Objective Data Objective Data Vital Signs: Vital Signs Temp Pulse Resp BP Pulse Ox O2 Del Method 97.9 F 98 16 115/61 51 Room Air 02/10/25 06:07 02/10/25 06:07 02/10/25 06:07 02/10/25 06:07 02/10/25 06:07 02/10/25 06:07 Oxygen Delivery Method Room Air Weight: 176 lb 9.444 oz Body Mass Index (BMI) 28.5 Intake & Output: Intake and Output for Last 24 Hours 02/08/25 02/09/25 02/10/25 23:59 23:59 23:59 Intake Total 3419.67 / 3419.67 2358.33 / 2358.33 50 / 50 Balance 3419.67 / 3419.67 2358.33 / 2358.33 50 / 50 Lab / Micro Data 02/08/25 04:22 02/08/25 04:22 Physical Exam Const oriented x3 and no apparent distress Resp normal respiratory effort GI soft to palpation and non-tender Assessment & Plan Assessment/Plan (1) Acute cholecystitis: PLAN: Still awaiting a bed at [facility]. Patient's pain is tolerable. If no bed becomes available today I would recommend a cholecystostomy tube. She is very apprehensive about this as she feels like it is a step backwards. She would like transfer if possible. Cristobal Mcallister MD Pager: [facility] [address] [place] [address], [address] [place] [address] Office:
[2025-02-10] MEDS: 0.9% Normal Saline (1000mL) 1,000 ML 100 ML IV ×2 (08:23→18:59)
[2025-02-10 08:29] VITALS: BP 147/78; PULSE 62; RESP 16; TEMP 36.7; O2SAT 100
[2025-02-10 14:00] VITALS: BP 137/82; PULSE 59; RESP 16; TEMP 36.6; O2SAT 100
[2025-02-10 20:50] VITALS: BP 124/72; PULSE 51; RESP 16; TEMP 36.8; O2SAT 98
[2025-02-11 02:39] VITALS: BP 109/62; PULSE 54; RESP 16; TEMP 36.6; O2SAT 98
[2025-02-11] MEDS: Levothyroxine 75 MCG Tablet PO (04:58)
[2025-02-11] MEDS: 0.9% Normal Saline (1000mL) 1,000 ML 100 ML IV (04:58)
[2025-02-11] MEDS: Piperacil/Tazobactam 3.375 GM in 0.9% Normal Saline (50mL MB+) 50 ML IV (06:20)
--- NOTE | 2025-02-11 07:49 | PCA ---
Facesheet faxed to [facility], placed call to radiology to push images over
[2025-02-11 08:19] LABS: Absolute Lymphocyte Count 0.78 X10^3/uL (0.83-4.51); Absolute Neutrophil Count 2.4 X10^3/uL (2.0-7.7); Basophil# 0.03 X10^3/uL; Basophil% 0.9 % (0-1); Eosinophil# 0.11 X10^3/uL; Eosinophils% 3.1 % (0-5); Hemoglobin 10.1 g/dL (12.0-15.0); Lymphocyte # 0.78 X10^3/ul (0.83-4.51); Lymphocyte % 22.2 % (19-41); Mean Corp Hgb Conc 32.6 g/dL (32-36); Mean Corpuscular Hgb 29.2 pg (27.0-32.0); Mean Corpuscular Volume 89.6 fL (81-99); Mean Platelet Vol. 9.1 fl (6.2-12.0); Monocyte# 0.23 X10^3/uL; Monocyte% 6.6 % (0-10); NRBC Flagged by Analyzer 0 % (0-5); Neutrophil # 2.35 X10^3/uL (2.7-7.7); Neutrophil % 66.9 % (47-70); Platelet Count 318 K/mm3 (150-450); RBC Distribution Width CV 14.4 % (11.6-14.6); RBC Distribution Width SD 46.7 fl (35.1-43.9); Red Blood Count 3.46 M/mm3 (4.2-5.4); White Blood Count 3.5 K/mm3 (4.4-11.0)
--- NOTE | 2025-02-11 08:42 | PN_ITS ---
Progress Note Patient reports she is comfortable with no nausea or vomiting. No fevers or chills. I reached out to [facility] today as we are still not getting a bed in [place]. If she does not transfer over the weekend I will insist on a cholecystostomy tube on Thursday which she refused on Thursday Cristobal Mcallister MD Pager: [facility] [address] [place] [address], [address] [place] [address] Office:
--- NOTE | 2025-02-11 08:42 | PCM.PN.BLA ---
Progress Note Patient reports she is comfortable with no nausea or vomiting. No fevers or chills. I reached out to [facility] today as we are still not getting a bed in [place]. If she does not transfer over the weekend I will insist on a cholecystostomy tube on Thursday which she refused on Thursday Cristobal Mcallister MD Pager: [facility] [address] [place] [address], [address] [place] [address] Office:
[2025-02-11 08:59] VITALS: BP 138/85; PULSE 61; RESP 18; TEMP 36.8; O2SAT 99
[2025-02-11 08:59] LABS: ALB/GLOB Ratio 1.3 RATIO (0.9-2.4); AST(SGOT) 73 U/L (<=31); Alanine Aminotransfer ALT/SGPT 129 U/L (<=34); Albumin, Serum 3.6 g/dL (3.5-5.0); Alkaline Phosphatase 261 U/L (35-104); Anion Gap 13 (5-15); BUN 4 mg/dL (4-19); BUN/Creat Ratio 5.7 RATIO (10-20); Calcium,Total 9.8 mg/dL (7.6-11.0); Chloride 108 mmol/L (98-108); Creatinine, Serum 0.65 mg/dL (0.70-1.20); EST Glomerular Filtration Rate 110 (>60); Estimated Creatinine Clearance 116.67 ml/min (50-250); Globulin 2.8 g/dL (2.2-4.2); Glucose 84 mg/dL (70-99); Potassium 3.3 mmol/L (3.3-5.1); Protein, Total 6.4 g/dL (5.9-8.4); Sodium Level 142 mmol/L (133-145); Total Bilirubin 0.61 mg/dL (0.00-1.30)
[2025-02-11 09:01] VITALS: PULSE 60
--- NOTE | 2025-02-11 12:41 | PCA ---
[facility] called with bed assignment for patient, is aware and primary RN. Pt would prefer to transport via family care. Checked with Dr. Mcallister to make sure he was comfortable with pt wishes. pt bed assignment at [facility] is [facility], 7th floor room 736, nurse to nurse report number is [phone]
[2025-02-11 13:03] VITALS: BP 129/82; PULSE 50; RESP 18; TEMP 36.7; O2SAT 100
--- NOTE | 2025-02-11 13:24 | NURSING ---
report give to Kevin Jolly RN at [facility] is coming in private car.
--- NOTE | 2025-02-13 09:19 | DS.PCM_ITS ---
Providers Date of Admission: 02/06/25 Primary Care Physician: Chelo Zapien PA-C Consultations 02/06/25 20:18 Consult: Gastroenterology Routine Consulting Provider: Toma Duran Reason for Consult: elevated LFTs EMERGENT Consult: No MD Notified: Yes Date Notified: 02/06/25 Time Notified: 20:18 Method of Notification: Verbal Reason For Visit: ACUTE CHOLECYSTITIS Diagnosis Discharge Diagnosis (1) Acute cholecystitis: Status: Acute Code(s): K81.0 - Acute cholecystitis Plan: Still awaiting a bed at [facility]. Patient's pain is tolerable. If no bed becomes available today I would recommend a cholecystostomy tube. She is very apprehensive about this as she feels like it is a step backwards. She would like transfer if possible. Cristobal Mcallister MD Pager: [facility] [address] [place] [address], [address] [place] [address] Office: Medications at Discharge Home Medications levothyroxine 75 mcg tablet 75 mcg PO DAILY 02/06/25 Hospital Course Summary of Care Provided Hospital Course: Patient was admitted from outside hospital with acute cholecystitis. She had attempted cholecystectomy the following day but it was too inflamed to even see the gallbladder. The patient requested transfer to [facility] to [facility] and I agreed with this. The patient stayed here for several days and never got to the [facility] due to bed situation. She was transferred to [facility] on Thursday after obtaining a bed. Weight / BMI Weight Weight: 176 lb 9.444 oz Body Mass Index (BMI) 28.5 ABG / Lab / Microbiology Data 02/11/25 08:00 02/11/25 08:00 D/C Instructions DC O2, CPAP, BIPAP Needs Home O2 Discharge instructions: No Meaningful Use Info Meaningful Use Meaningful Use Diagnoses (Choose all that apply): None applicable Ischemic Stroke Statin Dosing Therapy Reference: STATIN DOSE THERAPY REFERENCE: * Patients > 75 years receive moderate or high dose statin therapy. * Patients 75 years or YOUNGER should receive HIGH intensity statin dose unless contraindicated. You will be required to document reason for non-treatment if statin daily dose does not meet guidelines. HIGH DOSE STATIN THERAPY DAILY Atorvastatin > than or = to 40 mg Rosuvastatin > than or = to 20 mg Amlodipine + Atorvastatin > than or = to 2.5/40 mg Ezetimibe + Simvastatin 10/80 mg Simvastatin 80mg Discharge Plan Admission Admit Date/Time: 02/06/25 20:18 Attending Provider: Cristobal Mcallister Primary Care Provider: Chelo Zapien Discharge Orders/Prescriptions Prescriptions: No Action levothyroxine 75 mcg tablet 75 mcg PO DAILY Referrals / Follow Up: Chelo Zapien, PA-C [Primary Care Provider] - Disposition Disposition (needs filled in before D/C Order can be placed): DC/Tx to Another Type of HCF
== END 2025-02-11 14:10 | disposition other institution (70) | DRG 422 ==
LOC: ED 20:01 → MS3 20:32
PROVIDERS: Anesthesiology; Admitting Provider Surgery; Emergency Provider Emergency Medicine; PCP Family Medicine; Visit Provider Surgery
PROC: 0WJG4ZZ Inspection of Peritoneal Cavity, Percutaneous Endoscopic Approach (ICD-10-PCS; CPT 47610; principal; 2025-02-07 09:10)
DX: K80.62 Calculus of gallbladder and bile duct with acute cholecystitis without obstruction (principal); Z78.1 Physical restraint status; Z79.2 Long term (current) use of antibiotics; Z53.09 Procedure and treatment not carried out because of other contraindication
CPT/HCPCS: 36415; 74177; 76705; 80053; 83690; 84443; 84703; 85025; 93005; 99284; A4216; J2405